=== PATIENT | male | born 1960 | race Caucasian/White ===

== ENCOUNTER → 2018-02-07 | Outpatient (CLI) | payer OTHER ==
[~2018-02-07] MED LIST: ACETAMINOPHEN325 M1 PO; COLACE100 MG PO; HYDROCODON-ACE1 EAC7 PO; PERCOCET 5-3251 EACH PO; ROBAXIN 750 MG750 M1 PO; VIVANCE PO; VYVANSE50 MG PO
== END ==
LOC: MRI 01-27 10:02
DX: M47.816 Spondylosis without myelopathy or radiculopathy, lumbar region (principal); M48.061 Spinal stenosis, lumbar region without neurogenic claudication

== ENCOUNTER → 2019-06-12 | Outpatient (CLI) | payer OTHER | LOC: CAT 10:33 | DX: Z13.6 Encounter for screening for cardiovascular disorders (principal); E78.00 Pure hypercholesterolemia, unspecified; I25.10 Atherosclerotic heart disease of native coronary artery without angina pectoris ==